=== PATIENT | female | born 1985 | race Two or more races ===

== ENCOUNTER → 2017-11-08 | Emergency (ER) | payer OTHER ==
[~2017-11-08] VITALS: Ht 149.9 cm; Wt 63.5 kg
== END | disposition home or self-care (01) ==
LOC: ER 19:36
DX: M25.561 Pain in right knee (principal)

== ENCOUNTER 2025-03-27 05:55 | Day surgery (SDC) | payer OTHER ==
[2025-03-22 13:42] VITALS: BP 122/87
[~2025-03-27] VITALS: Ht 147.3 cm; Wt 59.0 kg
[~2025-03-27 05:55] MED LIST: NIFEDIPINE20 MG
[2025-03-27] MEDS ORDERED: CIPROFLOXACIN IN 5 % DEXTROSE 400 MG/200 ML PIGGYBAG IV ONE (08:45)
[2025-03-27] MEDS ORDERED: FAMOTIDINE/PF 20 MG/10 ML SYRINGE IV SCH (10:15)
[2025-03-27] MEDS ORDERED: MORPHINE SULFATE 4 MG/ML VIAL IV ONE (10:30)
== END 2025-03-27 12:30 | disposition home or self-care (01) ==
LOC: CIR.AMB 05:55
PROVIDERS: ATTEND Specialist
DX: K42.9 Umbilical hernia without obstruction or gangrene (principal); Z88.0 Allergy status to penicillin